=== PATIENT | female | born 1930 | race Caucasian/White ===

== ENCOUNTER 2016-06-25 11:52 | Inpatient (IN) | payer BC ==
[~2016-06-25] VITALS: Ht 162.6 cm; Wt 67.5 kg
[~2016-06-25 11:52] MED LIST: ACYC400T PO; ALEN70TA55 PO; FLUT250M2 INH; FURO40TA4 PO; LATA0.0015 EACHEYE; LEV50T PO; METO-158 PO; METO-281 PO; NIFE30TA70 PO; NOR5T PO; OME20T PO; POTA20TA53 PO; PRA25T PO; PRIM50TA29 PO; TIMO0.5S40 EACHEYE; TIOTCAP INH; WARPRX PO
[2016-06-25 14:03] LABS: Albumin 3.3 g/dL (3.4-5.0); BUN/Creatinine Ratio 34.2; Bilirubin, Total 0.4 mg/dL (0.2-1.0); Magnesium 2.4 mg/dL (1.6-2.6); Total Protein 7.2 g/dL (6.4-8.2)
[2016-06-25 14:07] LABS: Potassium 6.1 mmol/L (3.5-5.1)
[2016-06-25] MEDS ORDERED: SODIUM BICARBONATE 8.4% INJ 50ML SYRINGE IV ONE (14:15)
[2016-06-25] MEDS ORDERED: SODIUM POLYSTYRENE SULF 15GM/60ML SUSP PO ONE (14:15)
[2016-06-25] MEDS ORDERED: DEXTROSE (50%) 50ML SYRG IV ONE (14:15)
[2016-06-25] MEDS ORDERED: ALBUTEROL SULF 2.5 MG/0.5ML(0.5%) NEB SOLN NEB ONE (14:15)
[2016-06-25] MEDS ORDERED: InsuLIN REG 1unit/0.01ml Soln (100units/ml) IV ONE (14:15)
[2016-06-25 14:18] LABS: Basophils # (auto) 0 uL; Basophils % (auto) 0.1 % (0.0-2.0); Eosinophils # (auto) 0.1 uL; Eosinophils % (auto) 1.7 % (0.0-7.0); Hemoglobin 12.4 g/dL (12.2-16.2); Lymphocytes # (auto) 1.8 uL; Lymphocytes % (auto) 21.7 % (10.0-50.0); Mean Corpuscular Hemoglobin 32.1 pg (28.0-32.0); Mean Corpuscular Hgb Conc. 31.8 g/dL (32.0-36.0); Mean Corpuscular Volume 100.9 fL (80.0-100.0); Monocytes # (auto) 1.2 uL; Monocytes % (auto) 14.2 % (0.0-12.0); Neutrophils # (auto) 5.3 uL; Neutrophils % (auto) 62.3 % (37.0-80.0); Platelet Count (auto) 147 10^3/uL (140-450); Red Cell Distribution Width 14.8 % (11.6-16.0); White Blood Cell 8.5 10^3/uL (4.4-10.8)
[2016-06-25] MEDS ORDERED: SODIUM POLYSTYRENE SULF 15GM/60ML SUSP ONE (14:27)
[2016-06-25] MEDS ORDERED: ACETAMINOPHEN 325 MG TAB PO ONE (15:00)
[2016-06-25 15:14] LABS: Partial Thromboplastin Time 41.3 sec (22.64-33.71)
[2016-06-25 15:42] LABS: INR 2.92 (0.9-1.15); Prothrombin Time 30.1 sec (9.37-12.3)
[2016-06-25] MEDS ORDERED: PRIMIDONE 50 MG TAB PO ONE (18:45)
[2016-06-25] MEDS ORDERED: NITROGLYCERIN 0.4 MG SL TAB SL PRN ×2 (18:45)
[2016-06-25] MEDS ORDERED: ONDANSETRON HCL 4 MG/2 ML VIAL IV PRN (18:45)
[2016-06-25] MEDS ORDERED: PANTOPRAZOLE 40 MG TAB PO ONE (18:45)
[2016-06-25] MEDS ORDERED: ALUM & MAG HYDROX-SIMETH LIQ(MAALOX) 30 ML PO PRN (18:45)
[2016-06-25] MEDS ORDERED: ACETAMINOPHEN 325 MG TAB PO PRN (18:45)
[2016-06-25] MEDS ORDERED: MORPHINE SULF INJ 2 MG/ML SYRINGE 1ML IV PRN ×2 (18:45)
[2016-06-25] MEDS ORDERED: NIFEdipine ER 30 MG TAB PO ONE (19:00)
[2016-06-25] MEDS ORDERED: FUROSEMIDE 40 MG TAB PO ONE (19:00)
[2016-06-25] MEDS ORDERED: DOCUSATE SOD 100 MG CAP PO ONE (19:00)
[2016-06-25] MEDS ORDERED: CLOPIDOGREL BISULFATE 75 MG TAB PO ONE (19:00)
[2016-06-25] MEDS ORDERED: CALCIUM GLUC 4.65 MEQ/10ML 4.65 MEQ in SODIUM CHL 0.9% 50 ML IV ONE (19:00)
[2016-06-25 20:18] VITALS: BP 145/66
[2016-06-25 21:41] VITALS: BP 140/71
[2016-06-25] MEDS: LATANOPROST 0.005 % OPTH(EYE) SOL 2.5ML EACHEYE SCH (22:00)
[2016-06-25] MEDS: TIMOLOL MAL 0.5% OPTH(EYE) SOL 5ML EACHEYE SCH (22:00)
[2016-06-25] MEDS: SODIUM CHLOR 0.9% PF (SALINE LOCK) 10ML VIAL IV SCH (22:22)
[2016-06-25] MEDS: CARVEDILOL 3.125 MG TAB PO SCH (22:23)
[2016-06-25] MEDS: PRAMIPEXOLE DIHYDROCHLORIDE MO 0.25 MG TAB PO SCH (22:23)
[2016-06-25] MEDS: METOCLOPRAMIDE HCL 10 MG TAB PO SCH (22:23)
[2016-06-25] MEDS: ATORVASTATIN 20 MG TAB PO SCH (22:40)
[2016-06-25 22:43] LABS: Urine Bilirubin Negative (Negative); Urine Color Yellow (Yellow); Urine Ketone Negative (Negative); Urine Nitrite Negative (Negative); Urine RBC 10 /hpf (0 - 4); Urine Squamous Epithelial Cell FEW /hpf (<5); Urine Urobilinogen Normal (Negative); Urine pH 6.5 (5.0-8.0)
[2016-06-25 22:44] LABS: Urine Blood 1+ /uL (Negative); Urine Glucose 2+ mg/dL (Normal)
[2016-06-25 23:09] LABS: BUN/Creatinine Ratio 33.8; Calcium 9.9 mg/dL (8.5-10.1); Potassium 5.3 mmol/L (3.5-5.1)
[2016-06-25] MEDS: LORazepam 0.5 MG TAB PO PRN (23:11)
[2016-06-25] MEDS: ALBUTEROL SULF 2.5 MG/0.5ML(0.5%) NEB SOLN NEB SCH (23:20)
[2016-06-25] MEDS: BUDESONIDE (INHALATION) 0.5 MG/2 ML NEB NEB SCH (23:20)
[2016-06-25 23:54] VITALS: BP 140/71
[2016-06-26] VITALS (10 sets, daily range): BP systolic 67–119; BP diastolic 35–56
[2016-06-26] MEDS: ZOLPIDEM TARTRATE 5 MG TAB PO PRN (02:25)
[2016-06-26 05:24] LABS: Basophils # (auto) 0 uL; Basophils % (auto) 0.3 % (0.0-2.0); Eosinophils # (auto) 0.1 uL; Eosinophils % (auto) 1.2 % (0.0-7.0); Hematocrit 41.1 % (36.0-46.0); Hemoglobin 13.2 g/dL (12.2-16.2); Lymphocytes % (auto) 20.5 % (10.0-50.0); Mean Corpuscular Hemoglobin 32.2 pg (28.0-32.0); Mean Corpuscular Hgb Conc. 32.2 g/dL (32.0-36.0); Mean Corpuscular Volume 100.1 fL (80.0-100.0); Mean Platelet Volume 10.4 fL (7.4-10.4); Monocytes # (auto) 1.2 uL; Monocytes % (auto) 12.8 % (0.0-12.0); Neutrophils # (auto) 6.2 uL; Neutrophils % (auto) 65.2 % (37.0-80.0); Platelet Count (auto) 164 10^3/uL (140-450); Red Cell Distribution Width 14.9 % (11.6-16.0); White Blood Cell 9.5 10^3/uL (4.4-10.8)
[2016-06-26 05:37] LABS: Partial Thromboplastin Time 40.1 sec (22.64-33.71)
[2016-06-26 05:40] LABS: INR 3.08 (0.9-1.15); Prothrombin Time 31.7 sec (9.37-12.3)
[2016-06-26 05:43] LABS: Albumin 3.7 g/dL (3.4-5.0); Calcium 9.5 mg/dL (8.5-10.1); Magnesium 2.2 mg/dL (1.6-2.6); Potassium 5.1 mmol/L (3.5-5.1)
[2016-06-26 05:48] LABS: BUN/Creatinine Ratio 32.9; Bilirubin, Total 0.5 mg/dL (0.2-1.0); Total Protein 7.9 g/dL (6.4-8.2)
[2016-06-26] MEDS: METOCLOPRAMIDE HCL 10 MG TAB PO SCH ×3 (06:18→23:10)
[2016-06-26] MEDS: SODIUM CHLOR 0.9% PF (SALINE LOCK) 10ML VIAL IV SCH ×3 (06:18→23:08)
[2016-06-26] MEDS: LEVOTHYROXINE SODIUM 50 MCG TAB PO SCH (06:19)
[2016-06-26] MEDS: ALBUTEROL SULF 2.5 MG/0.5ML(0.5%) NEB SOLN NEB SCH ×3 (06:53→19:54)
[2016-06-26] MEDS: BUDESONIDE (INHALATION) 0.5 MG/2 ML NEB NEB SCH ×2 (06:53→19:54)
[2016-06-26] MEDS: BOOST PLUS 8 ounce PO SCH ×3 (08:00→18:00)
[2016-06-26] MEDS ORDERED: METOPROLOL TARTRATE 1MG/1ML-5ML VIAL IV ONE (09:12)
[2016-06-26] MEDS: ENALAPRIL MALEATE 2.5 MG TAB PO SCH ×2 (10:00→22:00)
[2016-06-26] MEDS: CARVEDILOL 3.125 MG TAB PO SCH ×2 (10:00→22:00)
[2016-06-26] MEDS ORDERED: POTASSIUM CHL 20 Meq TABLET PO SCH (10:00)
[2016-06-26] MEDS: NIFEdipine ER 30 MG TAB PO SCH (10:00)
[2016-06-26] MEDS: TIMOLOL MAL 0.5% OPTH(EYE) SOL 5ML EACHEYE SCH ×2 (10:00→23:08)
[2016-06-26] MEDS: FUROSEMIDE 40 MG TAB PO SCH (10:00)
[2016-06-26] MEDS: PRIMIDONE 50 MG TAB PO SCH (10:16)
[2016-06-26] MEDS: DOCUSATE SOD 100 MG CAP PO SCH (10:22)
[2016-06-26] MEDS: CLOPIDOGREL BISULFATE 75 MG TAB PO SCH (10:22)
[2016-06-26] MEDS: PANTOPRAZOLE 40 MG TAB PO SCH (10:23)
[2016-06-26] MEDS ORDERED: ADENOSINE 6 MG/2 ML INJ IV ONE ×2 (12:30)
[2016-06-26] MEDS ORDERED: SODIUM CHLORIDE 0.9% 500 ML IV ONE (12:45)
[2016-06-26] MEDS: LATANOPROST 0.005 % OPTH(EYE) SOL 2.5ML EACHEYE SCH (23:08)
[2016-06-26] MEDS: ATORVASTATIN 20 MG TAB PO SCH (23:09)
[2016-06-26] MEDS: PRAMIPEXOLE DIHYDROCHLORIDE MO 0.25 MG TAB PO SCH (23:10)
[2016-06-27] VITALS (7 sets, daily range): BP systolic 101–144; BP diastolic 36–83
[2016-06-27 05:50] LABS: Hematocrit 35.4 % (36.0-46.0); Hemoglobin 11.3 g/dL (12.2-16.2); Mean Corpuscular Hemoglobin 31.9 pg (28.0-32.0); Mean Corpuscular Hgb Conc. 31.9 g/dL (32.0-36.0); Mean Corpuscular Volume 99.9 fL (80.0-100.0); Mean Platelet Volume 10.8 fL (7.4-10.4); Platelet Count (auto) 140 10^3/uL (140-450); White Blood Cell 8.2 10^3/uL (4.4-10.8)
[2016-06-27 06:12] LABS: Partial Thromboplastin Time 36.2 sec (22.64-33.71)
[2016-06-27 06:22] LABS: Calcium 8.9 mg/dL (8.5-10.1); INR 2.5 (0.9-1.15); Potassium 4.7 mmol/L (3.5-5.1); Prothrombin Time 25.7 sec (9.37-12.3)
[2016-06-27] MEDS: BUDESONIDE (INHALATION) 0.5 MG/2 ML NEB NEB SCH ×2 (06:31→22:44)
[2016-06-27] MEDS: ALBUTEROL SULF 2.5 MG/0.5ML(0.5%) NEB SOLN NEB SCH ×3 (06:31→22:44)
[2016-06-27] MEDS: METOCLOPRAMIDE HCL 10 MG TAB PO SCH ×3 (07:06→22:14)
[2016-06-27] MEDS: LEVOTHYROXINE SODIUM 50 MCG TAB PO SCH (07:06)
[2016-06-27] MEDS: SODIUM CHLOR 0.9% PF (SALINE LOCK) 10ML VIAL IV SCH ×3 (07:06→22:13)
[2016-06-27 07:11] LABS: Metamyelocytes % 0; Myelocytes % 0; Promyelocytes % 0; Reactive Lymphocytes 0
[2016-06-27] MEDS: BOOST PLUS 8 ounce PO SCH (08:00)
[2016-06-27 09:01] LABS: Platelet Estimate Decreased; RBC Morphology Normal
[2016-06-27] MEDS: CLOPIDOGREL BISULFATE 75 MG TAB PO SCH (09:49)
[2016-06-27] MEDS: DOCUSATE SOD 100 MG CAP PO SCH (09:49)
[2016-06-27] MEDS: FUROSEMIDE 40 MG TAB PO SCH (09:49)
[2016-06-27] MEDS: PANTOPRAZOLE 40 MG TAB PO SCH (09:49)
[2016-06-27] MEDS: NIFEdipine ER 30 MG TAB PO SCH (09:50)
[2016-06-27] MEDS: TIMOLOL MAL 0.5% OPTH(EYE) SOL 5ML EACHEYE SCH ×2 (09:50→22:12)
[2016-06-27] MEDS: CARVEDILOL 3.125 MG TAB PO SCH ×2 (10:01→22:13)
[2016-06-27] MEDS: PRIMIDONE 50 MG TAB PO SCH (10:01)
[2016-06-27] MEDS: ENALAPRIL MALEATE 2.5 MG TAB PO SCH ×2 (12:13→22:14)
[2016-06-27] MEDS ORDERED: WARFARIN SODIUM 2.5 MG TAB PO ONE (17:00)
[2016-06-27] MEDS: LATANOPROST 0.005 % OPTH(EYE) SOL 2.5ML EACHEYE SCH (22:12)
[2016-06-27] MEDS: ATORVASTATIN 20 MG TAB PO SCH (22:13)
[2016-06-27] MEDS: PRAMIPEXOLE DIHYDROCHLORIDE MO 0.25 MG TAB PO SCH (22:13)
[2016-06-27] MEDS: ZOLPIDEM TARTRATE 5 MG TAB PO PRN (22:14)
[2016-06-28] VITALS: BP 130/57
[2016-06-28] MEDS: LORazepam 0.5 MG TAB PO PRN (00:48)
[2016-06-28 05:00] VITALS: BP 141/63
[2016-06-28 05:34] LABS: Partial Thromboplastin Time 28.2 sec (22.64-33.71)
[2016-06-28 05:38] LABS: Potassium 4.1 mmol/L (3.5-5.1)
[2016-06-28 05:43] LABS: BUN/Creatinine Ratio 40.4
[2016-06-28] MEDS: SODIUM CHLOR 0.9% PF (SALINE LOCK) 10ML VIAL IV SCH (06:21)
[2016-06-28] MEDS: METOCLOPRAMIDE HCL 10 MG TAB PO SCH (06:21)
[2016-06-28] MEDS: LEVOTHYROXINE SODIUM 50 MCG TAB PO SCH (06:21)
[2016-06-28 06:22] LABS: INR 1.45 (0.9-1.15); Prothrombin Time 14.9 sec (9.37-12.3)
[2016-06-28] MEDS: BUDESONIDE (INHALATION) 0.5 MG/2 ML NEB NEB SCH (07:22)
[2016-06-28] MEDS: ALBUTEROL SULF 2.5 MG/0.5ML(0.5%) NEB SOLN NEB SCH (07:22)
[2016-06-28 09:00] VITALS: BP 131/49
[2016-06-28] MEDS: TIMOLOL MAL 0.5% OPTH(EYE) SOL 5ML EACHEYE SCH (10:16)
[2016-06-28] MEDS: PANTOPRAZOLE 40 MG TAB PO SCH (10:16)
[2016-06-28] MEDS: DOCUSATE SOD 100 MG CAP PO SCH (10:16)
[2016-06-28] MEDS: CLOPIDOGREL BISULFATE 75 MG TAB PO SCH (10:17)
[2016-06-28] MEDS: PRIMIDONE 50 MG TAB PO SCH (10:17)
[2016-06-28] MEDS: CARVEDILOL 3.125 MG TAB PO SCH (10:18)
[2016-06-28] MEDS: ENALAPRIL MALEATE 2.5 MG TAB PO SCH (10:18)
[2016-06-28 12:00] VITALS: BP 94/45
[2016-06-28 12:30] VITALS: BP 100/55
[2016-06-28] MEDS ORDERED: WARFARIN SODIUM 5 MG TAB PO ONE (17:00)
== END 2016-06-28 13:38 | disposition home or self-care (01) | DRG 313 ==
LOC: EDBD 11:52 → ER 12:02 → TELE-CENTR 12:03 → DOU IN ICU 06-26 11:43 → TELE-EAST 06-27 14:15
PROVIDERS: ADMIT Internal Medicine; ATTEND Internal Medicine
DX: R07.89 Other chest pain (principal); I13.0 Hypertensive heart and chronic kidney disease with heart failure and stage 1 through stage 4 chronic kidney disease, or unspecified chronic kidney disease; E44.1 Mild protein-calorie malnutrition; I47.1 Supraventricular tachycardia; J96.10 Chronic respiratory failure, unspecified whether with hypoxia or hypercapnia; I50.32 Chronic diastolic (congestive) heart failure; N17.9 Acute kidney failure, unspecified; E86.0 Dehydration; M19.90 Unspecified osteoarthritis, unspecified site; R79.1 Abnormal coagulation profile; T45.515A Adverse effect of anticoagulants, initial encounter; E87.6 Hypokalemia; N18.3 Chronic kidney disease, stage 3 (moderate); E03.9 Hypothyroidism, unspecified; I95.9 Hypotension, unspecified; J44.9 Chronic obstructive pulmonary disease, unspecified; Z99.81 Dependence on supplemental oxygen; Z90.710 Acquired absence of both cervix and uterus; Z88.6 Allergy status to analgesic agent; Z95.2 Presence of prosthetic heart valve; Z83.3 Family history of diabetes mellitus; Z82.49 Family history of ischemic heart disease and other diseases of the circulatory system; Z87.891 Personal history of nicotine dependence; Z68.25 Body mass index [BMI] 25.0-25.9, adult
CPT/HCPCS: 36415; 71010; 80048; 80053; 80061; 81001; 82962; 83735; 84484; 85007; 85025; 85027; 85610; 85730; 92610; 93005; 94640; 94761; 96365; 96375; J1815; J2405

== ENCOUNTER 2016-08-03 16:38 | Emergency (ER) | payer BC ==
[~2016-08-03] VITALS: Ht 162.6 cm; Wt 64.4 kg
[2016-08-03 18:00] LABS: Partial Thromboplastin Time 39.2 sec (22.64-33.71)
[2016-08-03 18:01] LABS: INR 2.7 (0.9-1.15); Prothrombin Time 27.8 sec (9.37-12.3)
[2016-08-03] MEDS ORDERED: PHENYLEPHRINE HCL 0.25 % NASAL SPRAY 15ML ONE (18:30)
[2016-08-03 18:43] LABS: Albumin 3.6 g/dL (3.4-5.0); BUN/Creatinine Ratio 37.1; Bilirubin, Total 0.3 mg/dL (0.2-1.0); Calcium 9.2 mg/dL (8.5-10.1); Potassium 5.1 mmol/L (3.5-5.1); Total Protein 7.6 g/dL (6.4-8.2)
[2016-08-03 19:26] LABS: Hematocrit 37.7 % (36.0-46.0); Hemoglobin 11.9 g/dL (12.2-16.2); Mean Corpuscular Hemoglobin 31.5 pg (28.0-32.0); Mean Corpuscular Hgb Conc. 31.5 g/dL (32.0-36.0); Mean Corpuscular Volume 99.8 fL (80.0-100.0); Mean Platelet Volume 9.5 fL (7.4-10.4); Platelet Count (auto) 166 10^3/uL (140-450); Red Cell Distribution Width 13.9 % (11.6-16.0); White Blood Cell 7.3 10^3/uL (4.4-10.8)
[2016-08-03 19:35] LABS: Metamyelocytes % 0; Myelocytes % 0; Promyelocytes % 0; Reactive Lymphocytes 0
[2016-08-03] MEDS ORDERED: COCAINE HCL 4% TOP SOL 4ML TOP ONE ×2 (21:06→21:15)
[2016-08-03 21:18] LABS: Anisocytosis Moderate; Platelet Estimate Adequate; Stomatocytes Few
[2016-08-03] MEDS ORDERED: LIDOCAINE W/ EPINEPHRINE 1% 20ML VIAL ID ONE (22:15)
[2016-08-03] MEDS ORDERED: LORazepam 2MG/ML-1ML VIAL ONE (22:15)
[2016-08-03] MEDS ORDERED: LORazepam 2MG/ML-1ML VIAL IV ONE (22:30)
[2016-08-03] MEDS ORDERED: HYDROcodone-ACET 5/325MG TAB PO ONE (22:45)
[2016-08-04 00:10] VITALS: BP 127/81
== END 2016-08-04 00:40 | disposition home or self-care (01) ==
LOC: ER 16:41
DX: R04.0 Epistaxis (principal); Z79.82 Long term (current) use of aspirin; Z79.01 Long term (current) use of anticoagulants; Z79.899 Other long term (current) drug therapy; J44.9 Chronic obstructive pulmonary disease, unspecified; I10 Essential (primary) hypertension; E07.9 Disorder of thyroid, unspecified; M19.90 Unspecified osteoarthritis, unspecified site; I50.9 Heart failure, unspecified; Z95.2 Presence of prosthetic heart valve
CPT/HCPCS: 30901; 36415; 80053; 85007; 85027; 85610; 85730; 96374; 99284; J2060

== ENCOUNTER 2016-09-29 20:42 | Emergency (ER) | payer BC ==
[~2016-09-29] VITALS: Ht 170.2 cm; Wt 90.7 kg
[2016-09-29 20:42] VITALS: BP 160/73
[~2016-09-29 20:42] MED LIST changes: +ATROPINE SULF 0.5 MG/5ML SYR IV ONE; +CALCIUM CHLOR(10%) 100MG/ML 10ML SYRINGE IV ONE; +EPINEPHrine HCL 1 MG/10 ML SYRG IV ONE; +SODIUM BICARBONATE 8.4% INJ 50ML SYRINGE IV ONE
[2016-09-29] MEDS ORDERED: NOREPINEPHRINE BITARTRATE 250 ML IV ONE (21:07)
[2016-09-29] MEDS ORDERED: NOREPINEPHRINE BITARTRATE 16 MG in D5W 5% 250 ML IV ONE (21:15)
[2016-09-29] MEDS ORDERED: NOREPINEPHRINE BITARTRATE 250 ML IV SCH (21:30)
[2016-09-29] MEDS ORDERED: EPINEPHrine HCL 1 MG/10 ML SYRG ONE (21:37)
[2016-09-29] MEDS ORDERED: SODIUM BICARBONATE 8.4% INJ 50ML SYRINGE ONE (21:37)
== END 2016-09-30 00:27 | disposition expired ==
LOC: ER 20:49
DX: I46.9 Cardiac arrest, cause unspecified (principal); M19.90 Unspecified osteoarthritis, unspecified site; J44.9 Chronic obstructive pulmonary disease, unspecified; I11.0 Hypertensive heart disease with heart failure; I50.9 Heart failure, unspecified; E07.9 Disorder of thyroid, unspecified; Z88.6 Allergy status to analgesic agent; Z79.01 Long term (current) use of anticoagulants; Z79.899 Other long term (current) drug therapy; R41.82 Altered mental status, unspecified
CPT/HCPCS: 51702; 70450; 71010; 72125; 92950; 93005; 99285; J0171; J0461; J3490; J7060